=== PATIENT | male | born 1945 | race Caucasian/White ===

== ENCOUNTER 2016-12-01 10:45 | Day surgery (SDC) | payer BC ==
--- NOTE | ~2016-12-01 | OP ---
Record Of Operation [place] [id number] [facility] [place]. [address] NAME: THEO CARVAJAL : 41 STATUS : [facility] PAT#: [id number] AGE: 71 ADM/REG DATE : 12/01/16 MR#: [id number] REPORT SERV DATE: 12/02/16 DICTATED BY: ANASTASIIA DURHAM DATE: 12/02/16 REPORT STATUS : Draft TRANSCRIBED BY: MODL DATE: 12/02/16 DATE OF PROCEDURE: PREOPERATIVE DIAGNOSES: 1. Malignant melanoma, mid upper back, nodular type. Thickness 4.5 mm, Abisai level 4, high mitotic rate, 14 mitoses per squared mm. No ulceration, status post excisional biopsy with negative margins. T4a, N0, M0. OPERATION: 1. Wide radical resection of malignant melanoma site, a skin and soft tissues of the mid upper back. 2. Intraoperative lymphatic mapping injection of isosulfan blue. 3. Identification and excision of sentinel nodes of the right axilla. 4. Repair of soft tissue defect in layers and placement of a drain. POSTOPERATIVE DIAGNOSIS: 1. Malignant melanoma, mid upper back, nodular type. Thickness 4.5 mm, Abisai level 4, high mitotic rate, 14 mitoses per squared mm. No ulceration, status post excisional biopsy with negative margins. T4a, N0, M0. SURGEON: Anastasiia Durham M.D. ANESTHESIA: General. COMPLICATIONS: None. ESTIMATED BLOOD LOSS: Less than 25 mL. COUNTS: Correct. DISPOSITION: PACU. SPECIMENS: To pathology. Skin and soft tissues including superficial aponeurosis of the mid upper back. Two sentinel nodes of the right axilla x3. Time-out protocol enforced at the beginning. Exit time-out protocol enforced at the end of the case. No complications. Counts were correct. No unexpected events. DISPOSITION: The patient to be discharged home. Family informed. Medical clearance obtained from his primary care physician, Dr. Janette Quevedo. Preoperative evaluation included history, review of systems, physical exam standard, and advanced imaging PET-CT. No evidence of distant disease. Laboratory analysis, mildly elevated LDH to be repeated. Record Of Operation [facility] [address] [facility] [place]. [address] NAME: THEO CARVAJAL : 41 STATUS : [facility] PAT#: [id number] AGE: 71 ADM/REG DATE : 12/01/16 MR#: [id number] REPORT SERV DATE: 12/02/16 DICTATED BY: ANASTASIIA DURHAM DATE: 12/02/16 REPORT STATUS : Draft TRANSCRIBED BY: RANJAN DATE: 12/02/16 Education, the patient was educated in the management of melanoma as well as a surgical procedures. Informed consent obtained. Preoperative lymphoscintigraphy with planar images only, review discussed with Dr. Shaq Cruz, radiologist. Initial images show faint migration to the right axilla. The procedure was delayed and the patient sent for repeat images showing sentinel node draining to the right axilla exclusively. The patient understood the potential risk in spite of the negative head CT even if the sentinel node was to be negative. He was identified preoperatively. The site was marked. SUMMARY: He was brought to the operating room, placed supine. The patient identified. Procedure confirmed. A time-out protocol enforced. Prophylactic IV antibiotics given. He was placed in the left lateral decubitus position with the right upper back and the right axilla exposed. The area of the melanoma was injected intradermally with 1 mL of isosulfan blue using a 30-gauge needle. We measured 2 cm margins from the prior area of resection. The area to be resected measures approximately 5 x 5 cm. We designed a transverse elliptical incision to encompass this and additional margins medially and laterally towards the right lateral posterior back and the left lateral posterior back. A time-out protocol was enforced. The incision was carried down through the full thickness of the underlying subcutaneous tissue and the superficial aponeurosis. Hemostasis was achieved by means of electrocoagulation. Primarily a few ligatures of 3-0 Vicryl were employed as well. The skin soft tissues and the superficial aponeurosis were resected. The specimen oriented labeled and sent to pathology for analysis. All the blue- stained lymphatic network was resected in the field. There was no evidence of any intrinsic disease or abnormalities in the skin or subcutaneous tissues. As stated, all the blue-stained lymphatic network under the subcutaneous tissues was resected. The injection was purely and only intradermal. This represented blue dye that permeated through the subcutaneous tissues and the lymphatic network and was resected completely. The field was irrigated with normal saline solution. We secured hemostasis. A 15 round Devyn drain was placed. The dermis was approximated with multiple interrupted sutures of 2-0 Vicryl. The superficial dermis with interrupted sutures of 3-0 Vicryl. The skin with interrupted sutures of 3-0 Prolene and skin shivani alternating. The field was irrigated with 0.25% Marcaine with epinephrine for postoperative pain control. Sterile dressings were applied. The right axilla was then interrogated with the gamma probe, mild radioactivity was detected with the gamma probe. This was consistent with the findings on the preoperative lymphoscintigraphy still showing mile migration to the right axilla to know the places even after prolonged wait. An incision was made and carried down through the underlying subcutaneous tissues into level 1. Carefully and meticulously the tissues were dissected to discover the sentinel node in the right axilla. The node was slightly blue in color and contained radioactivity. This node was carefully isolated, Record Of Operation [facility] [address] [facility]. [address] NAME: SOPHIADebraTHEO : 41 STATUS : [facility] PAT#: [id number] AGE: 71 ADM/REG DATE : 12/01/16 MR#: [id number] REPORT SERV DATE: 12/02/16 DICTATED BY: ANASTASIIA DURHAM DATE: 12/02/16 REPORT STATUS : Draft TRANSCRIBED BY: RANJAN DATE: 12/02/16 dissected free, harvested intact, and sent to pathology for analysis with minimal trauma to the nodes. The lymphatic vessels were divided between hemoclips. Two small additional sentinel nodes were identified, dissected free, harvested intact, and sent to pathology for analysis. There was no other evidence of pathological adenopathy by inspection and palpation and no significant residual background activity. The field was irrigated with normal saline solution, 0.25% Marcaine for postoperative pain control with epinephrine, and then we used Marce to enhance hemostasis. The dermis was approximated with interrupted sutures of 3-0 Vicryl and the skin with 3-0 Vicryl interrupted as well as a few skin shivani. Sterile dressings were applied as well. The patient was then awakened and sent to PACU in a stable condition. The field was wrapped with an Aron bandage. He has tolerated procedure well. There were no complications. Await path report. Instructions, followup appointment, prescriptions, and contact information were provided. He will be seen on a short-term basis for postoperative care. I have one more time educated and informed the family of the long-term plans including the Multidisciplinary Tumor Board presentation as well as direct consultation with Medical Oncology. They have no further questions. He will be monitored closely. Further recommendations will be deferred until the final path report is available. MATT/RANJAN Anastasiia Durham M.D. / [id number] CC: Madison Kilpatrick M.D. Samuel Banks, M.D. Delbert Noel NP
[~2016-12-01 10:45] MED LIST: ADVIL PO; ASAB PO; K500 PO; TELMISARTAN PO; [UNRECOGNIZED DRUG - OTHER] PO
[2016-12-01 11:10] LABS: HEMATOCRIT 45.7 % (40.0-51.0); HEMOGLOBIN 16.3 g/dL (13.6-17.8)
[2016-12-01 11:27] LABS: BUN (BLOOD UREA NITROGEN) 19 MG/DL (6-23); CALCIUM, SERUM 9.3 MG/DL (8.5-10.4); CHLORIDE, SERUM 109 MMOL/L (96-112); CO2 (CARBON DIOXIDE) 24 MMOL/L (24-34); CREATININE 0.98 MG/DL (0.70-1.30); GFR AFRICAN AMERICAN 88 ML/MIN (>=60); GFR NON AFRICAN AMERICAN 76 ML/MIN (>=60); GLUCOSE, SERUM 123 MG/DL (60-99); POTASSIUM, SERUM 4.3 MMOL/L (3.5-5.3); SODIUM, SERUM 142 MMOL/L (135-148)
== END 2016-12-01 19:43 | disposition home or self-care (01) ==
LOC: SDC 10:45
PROVIDERS: Surgery
PROC: 07B50ZZ Excision of Right Axillary Lymphatic, Open Approach (ICD-10-PCS; 2016-12-01)
PROC: 0HB6XZZ Excision of Back Skin, External Approach (ICD-10-PCS; principal; 2016-12-01 13:15)
DX: L82.1 Other seborrheic keratosis (principal); C43.59 Malignant melanoma of other part of trunk; C77.3 Secondary and unspecified malignant neoplasm of axilla and upper limb lymph nodes; I10 Essential (primary) hypertension; E78.5 Hyperlipidemia, unspecified; G47.33 Obstructive sleep apnea (adult) (pediatric); Z88.5 Allergy status to narcotic agent; Z79.82 Long term (current) use of aspirin; Z79.1 Long term (current) use of non-steroidal anti-inflammatories (NSAID); Z79.2 Long term (current) use of antibiotics; Z79.899 Other long term (current) drug therapy
CPT/HCPCS: 78195; 80048; 85014; 85018; 88305; 88307; 88341; 88342; A9270-GY; A9541; J0690; J2250; J2405; J3010; Q9968

== ENCOUNTER 2017-03-04 19:49 | Emergency (ER) | payer BC ==
[2017-03-04 20:20] LABS: BASOPHILS 0.4 %; BASOPHILS ABSOLUTE 0.03 10/3/uL (0.0-0.16); EOSINOPHILS 1.6 %; EOSINOPHILS ABSOLUTE 0.11 10/3/uL (0.0-0.53); HEMATOCRIT 41.9 % (40.0-51.0); HEMOGLOBIN 14.7 g/dL (13.6-17.8); IMMATURE GRANULOCYTES 0.3 %; IMMATURE GRANULOCYTES ABSOLUTE 0.02 10/3/uL (0.0-0.11); LYMPHOCYTES 14.2 %; LYMPHOCYTES ABSOLUTE 0.98 10/3/uL (0.67-4.30); MEAN CORPUS HGB CONC 35.1 g/dL (32.0-36.0); MEAN CORPUSCULAR HEMOGLOB 31.7 pg (26.0-34.0); MEAN CORPUSCULAR VOLUME 90.5 fL (80-100); MEAN PLATELET VOLUME 9.8 fL (9.2-13.0); MONOCYTES 10.3 %; MONOCYTES ABSOLUTE 0.71 10/3/uL (0.21-1.20); NEUTROPHILS 73.2 %; NEUTROPHILS ABSOLUTE 5.04 10/3/uL (2.02-8.40); PLATELET COUNT 106 10/3/uL (150-400); RBC DISTRIBUTION WIDTH 13.3 % (12.0-16.0); RED CELL COUNT 4.63 10/6/uL (4.7-6.1); WHITE BLOOD CELLS 6.9 10/3/uL (4.5-10.5)
[2017-03-04 20:23] LABS: MANUAL DIFF NO %
[2017-03-04 20:33] LABS: INTERNATIONAL NORMAL RATI 1.2 UNITS (-); PARTIAL THROMBO TIME 30.6 SEC (22.5-37.2); PROTIME (NOT ORD) 14.6 SEC (12.0-14.5)
[2017-03-04 20:35] LABS: A/G RATIO 0.9 (0.7-1.9); ALBUMIN 3.4 G/DL (3.5-5.0); ALKALINE PHOSPHATASE 92 U/L (45-117); BUN (BLOOD UREA NITROGEN) 21 MG/DL (6-23); CHLORIDE, SERUM 107 MMOL/L (96-112); CO2 (CARBON DIOXIDE) 23 MMOL/L (24-34); CREATININE 1.14 MG/DL (0.70-1.30); GFR AFRICAN AMERICAN 74 ML/MIN (>=60); GFR NON AFRICAN AMERICAN 63 ML/MIN (>=60); GLOBULIN 3.9 G/DL (2.5-4.1); POTASSIUM, SERUM 4.2 MMOL/L (3.5-5.3); SGOT(AST) 19 U/L (5-40); SGPT(ALT) 28 U/L (5-65); SODIUM, SERUM 139 MMOL/L (135-148); TOTAL BILIRUBIN 0.7 MG/DL (0-1.2); TOTAL PROTEIN 7.3 G/DL (6.0-8.5)
[2017-03-04 20:37] LABS: CALCIUM, SERUM 8.2 MG/DL (8.5-10.4); GLUCOSE, SERUM 203 MG/DL (60-99)
[2017-03-04 20:41] LABS: LACTATE 2.4 MMOL/L (0.3-2.4)
[2017-03-04 21:03] LABS: WBC (NOT ORDERED) (RFLEX) 0 (0-5)
[2017-03-04 21:12] LABS: ASCORBIC ACID (UR NOT ORDER) NEG (NEG); BILIRUBIN, URINE NEGATIVE (NEG); ER URINALYSIS TAT 0 Hrs 10 Mins; KETONE, URINE NEGATIVE (NEG); LEUKOCYTE ESTERASE(NOT OR NEG (NEG); NITRITE (URINE) NEG (NEG)
== END 2017-03-05 02:10 | disposition home or self-care (01) ==
LOC: ER 19:49
PROVIDERS: Emergency Medicine
DX: K57.32 Diverticulitis of large intestine without perforation or abscess without bleeding (principal); C43.9 Malignant melanoma of skin, unspecified; I71.4 Abdominal aortic aneurysm, without rupture; I10 Essential (primary) hypertension; Z88.5 Allergy status to narcotic agent; Z79.82 Long term (current) use of aspirin; Z79.2 Long term (current) use of antibiotics; Z79.899 Other long term (current) drug therapy
CPT/HCPCS: 71020; 74176; 80053; 81001; 83605; 83690; 85025; 85610; 85730; 87040; 99285; A9270-GY